=== PATIENT | male | born 1970 | race African-American/Black ===

== ENCOUNTER 2019-05-20 00:59 | Emergency (ER) | payer MEDICAID ==
[~2019-05-20] VITALS: Ht 172.7 cm; Wt 73.0 kg
[2019-05-20 01:10] VITALS: BP 145/89
== END 2019-05-20 05:54 | disposition left against medical advice (07) ==
LOC: ER 00:59
DX: M54.5 Low back pain (principal); I10 Essential (primary) hypertension; I20.9 Angina pectoris, unspecified; F12.10 Cannabis abuse, uncomplicated
CPT/HCPCS: 99281; 99282

== ENCOUNTER 2020-06-04 05:35 | Emergency (ER) | payer MEDICAID, OTHER ==
[~2020-06-04] VITALS: Ht 167.6 cm; Wt 67.0 kg
[2020-06-04] MEDS ORDERED: AZITHROMYCIN 500 MG TABLET PO ONE (06:45)
[2020-06-04] MEDS ORDERED: CEFTRIAXONE SODIUM 250 MG/VIAL IM ONE (06:45)
[2020-06-04] MEDS ORDERED: LIDOCAINE HCL 1% 20ML VIAL (Pyxis) INJ INFIL ONE (06:45)
[2020-06-04 07:30] VITALS: BP 151/97
[2020-06-07 04:09] LABS: NEISSERIA GONORRHOEAE NAA Positive (Negative)
== END 2020-06-04 07:47 | disposition home or self-care (01) ==
LOC: ER 06:01
DX: N34.2 Other urethritis (principal); F20.9 Schizophrenia, unspecified; I10 Essential (primary) hypertension; I20.9 Angina pectoris, unspecified
CPT/HCPCS: 87491; 87591; 96372; 99283; J0696; J3490

== ENCOUNTER 2020-09-14 04:02 | Emergency (ER) | payer MEDICAID ==
[~2020-09-14] VITALS: Ht 167.6 cm; Wt 79.4 kg
[2020-09-14 05:47] LABS: BASOPHILS % 0.3 % (0.0-2.0); EOSINOPHILS % 2.8 % (0.0-5.0); HEMATOCRIT. 47.9 % (42.0-52.0); HEMOGLOBIN. 15.5 g/dL (14.0-18.0); LYMPHOCYTES % 16.4 % (20.0-50.0); MEAN CORPUSCULAR HEMOGLOBIN 26.7 pg (28.0-32.0); MEAN CORPUSCULAR VOLUME 82.7 fL (80.0-94.0); MEAN PLATELET VOLUME 8.2 fl (7.4-10.4); MONOCYTES % 7.4 % (2.0-8.0); NEUTROPHILS % 73.1 % (40.0-76.0); PLATELET 299 x1000/uL (130-400); RED BLOOD CELL COUNT 5.79 mill/uL (4.7-6.1); RED CELL DISTRIBUTION WIDTH 14.1 % (11.6-14.6)
[2020-09-14 05:49] LABS: CHLORIDE 104 mEq/L (98-107)
[2020-09-14 05:51] LABS: CLARITY URINE CLEAR (CLEAR); COLOR URINE YELLOW (YELLOW); KETONES URINE TRACE (NEGATIVE); LEUKOCYTE ESTERASE URINE TRACE (NEGATIVE); NITRITE URINE NEGATIVE (NEGATIVE); OCCULT BLOOD URINE NEGATIVE (NEGATIVE); PROTEIN URINE TRACE (NEGATIVE); SPECIFIC GRAVITY URINE 1.023 (1.005-1.030)
[2020-09-14] MEDS ORDERED: ONDANSETRON HCL 4MG/2ML INJ IV ONE (06:00)
[2020-09-14] MEDS ORDERED: IOHEXOL-300 100 ML BOTTLE ONE (09:32)
[2020-09-14] MEDS ORDERED: ONDA4TAB11 PO (09:55)
[2020-09-14 10:00] VITALS: BP 143/96
== END 2020-09-14 11:30 | disposition home or self-care (01) ==
LOC: ER 04:02
DX: R10.9 Unspecified abdominal pain (principal); R11.10 Vomiting, unspecified; F20.9 Schizophrenia, unspecified
CPT/HCPCS: 36415; 71045; 74177; 80053; 81003; 83690; 85025; 93005; 96374; 99285; J2405; Q9967; Z7610

== ENCOUNTER 2021-05-08 10:09 | Emergency (ER) | payer MEDICAID ==
[~2021-05-08] VITALS: Ht 165.1 cm; Wt 66.0 kg
[~2021-05-08 10:09] MED LIST: ONDA4TAB11 PO
[2021-05-08 10:18] VITALS: BP 153/95
== END 2021-05-08 11:57 | disposition home or self-care (01) ==
LOC: ER 10:09
DX: G62.9 Polyneuropathy, unspecified (principal); I10 Essential (primary) hypertension; F20.9 Schizophrenia, unspecified; F12.10 Cannabis abuse, uncomplicated
CPT/HCPCS: 99281

== ENCOUNTER 2025-02-07 09:13 | Emergency (ER) | payer MEDICAID ==
[~2025-02-07] VITALS: Ht 172.7 cm; Wt 80.0 kg
[~2025-02-07 09:13] MED LIST changes: +LIP40 PO; +ONDA-239 PO; -ONDA4TAB11 PO; +[UNRECOGNIZED DRUG - CODE] PO
[2025-02-07 09:18] VITALS: O2SAT 98
[2025-02-07] MEDS: MORPHINE SULFATE 4 MG/ML INJ (FOR IV/IM USE) IV ONE (09:41)
[2025-02-07] MEDS: KETOROLAC 15MG/ML VIAL IV ONE (09:41)
[2025-02-07] MEDS: ONDANSETRON HCL 4MG/2ML INJ IV ONE (09:41)
[2025-02-07 09:46] LABS: BASOPHILS % 0.6 % (0.0-2.0); EOSINOPHILS % 5.9 % (0.0-5.0); HEMATOCRIT. 44.5 % (42.0-52.0); HEMOGLOBIN. 14.3 g/dL (14.0-18.0); LYMPHOCYTES % 16.8 % (20.0-50.0); MEAN PLATELET VOLUME 7.1 fl (7.4-10.4); MONOCYTES % 7.5 % (2.0-8.0); NEUTROPHILS % 69.2 % (40.0-76.0); PLATELET 289 x1000/uL (130-400); RED BLOOD CELL COUNT 5.22 mill/uL (4.7-6.1); RED CELL DISTRIBUTION WIDTH 14.0 % (11.6-14.6)
[2025-02-07 09:55] LABS: INR 0.9
[2025-02-07 09:58] LABS: CREATININE 0.9 mg/dL (0.6-1.3); UREA NITROGEN BLOOD < 5 mg/dL (9-23)
[2025-02-07 09:59] LABS: C REACTIVE PROTEIN HIGH SENS 2.53 mg/l (<1.00)
[2025-02-07 10:28] LABS: ERYTHROCYTE SEDIMENTATION RATE 10 mm/hr (0-20)
[2025-02-07] MEDS ORDERED: MUPIROCIN 2% OINT 15GM TOP STA (10:33)
[2025-02-07] MEDS ORDERED: MUPI15CR11 TP (12:02)
[2025-02-07] MEDS ORDERED: IBUP-1455 MT (12:02)
[2025-02-07 12:28] VITALS: BP 140/97; PULSE 90; RESP 17; TEMP 36.6; O2SAT 99
== END 2025-02-07 12:28 | disposition home or self-care (01) ==
LOC: ER 09:19 → CANBEDREQ 11:17 → ER 12:28
DX: M25.561 Pain in right knee (principal); M79.672 Pain in left foot; F14.90 Cocaine use, unspecified, uncomplicated; I10 Essential (primary) hypertension; E78.5 Hyperlipidemia, unspecified; F15.90 Other stimulant use, unspecified, uncomplicated; Z72.0 Tobacco use; Z79.899 Other long term (current) drug therapy
CPT/HCPCS: 80048; 86141; 84550; 85025; 85610; 85651; 85730; 36415; 73562; 73630; 96374; 96375; 99284; 99406; J1885; J2405; J2270; Z7610 ×2

== ENCOUNTER 2025-03-11 13:58 | Emergency (ER) | payer MEDICAID ==
[~2025-03-11] VITALS: Ht 167.6 cm; Wt 63.0 kg
[~2025-03-11 13:58] MED LIST changes: +IBUP-1455 MT; +MUPI15CR11 TP
[2025-03-11 14:12] VITALS: O2SAT 99
[2025-03-11 14:19] VITALS: BP 158/94; PULSE 74; RESP 18; TEMP 36.9; O2SAT 99
== END 2025-03-11 16:08 | disposition left against medical advice (07) ==
LOC: ER 13:58
DX: M54.9 Dorsalgia, unspecified (principal); Z53.21 Procedure and treatment not carried out due to patient leaving prior to being seen by health care provider
CPT/HCPCS: 99281

== ENCOUNTER 2025-03-23 01:55 | Emergency (ER) | payer MEDICAID ==
[~2025-03-23] VITALS: Ht 167.6 cm; Wt 64.0 kg
[2025-03-23 02:17] VITALS: BP 146/99; PULSE 74; RESP 16; TEMP 36.8; O2SAT 98
== END 2025-03-23 03:04 | disposition left against medical advice (07) ==
LOC: ER 01:55
DX: M79.672 Pain in left foot (principal); I10 Essential (primary) hypertension; F15.90 Other stimulant use, unspecified, uncomplicated; F14.90 Cocaine use, unspecified, uncomplicated; Z79.899 Other long term (current) drug therapy
CPT/HCPCS: 99282